=== PATIENT | male | born 1970 | race Caucasian/White ===

== ENCOUNTER 2018-09-22 18:32 | Emergency (ER) | payer MEDICAID ==
[2018-09-22] MEDS ORDERED: Ketorolac 60 MG/2 ML SDV IM ONE (19:25)
--- NOTE | 2018-09-22 19:57 | EDM.PDOC ---
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 It hurt to move his arm, take a breath or rotate his neck. No shortness of breath or fever. No cough. No trauma. Overnight he had difficulty sleeping because it hurt, and today it's very sharp and starting to radiate up the back of his right neck into his ear so he thought he should get it checked out. He took Tylenol, no anti-inflammatories because he reacted to aspirin earlier in his life. He still has no fever or shortness of breath, denies a cough, denies bruising, chest pain or nausea or vomiting. Even sitting up from a lying position looks painful. Onset: Gradual Duration: Day(s): (36 hours) Associated Symptoms: Denies: Chest Pain, Cough, Diaphoresis, Nausea/Vomiting, Shortness of Breath (Patient is not short of breath but has pleuritic pain with breathing), Weakness Right Upper Back Pain Score (Numeric/FACES): 10 - Related Data Allergies Allergy/AdvReac Type Severity Reaction Status Date / Time aspirin Allergy Swollen Verified 09/22/18 18:55 Eyes Penicillins Allergy Rash Verified 09/22/18 18:55 Home Meds: Home Meds NK [No Known Home Meds] 09/22/18 [History] Past Medical History Musculoskeletal History: Reports: Fracture Other Musculoskeletal History: fx knee fx hands collar bones r femur Neurological History: Reports: Concussion - Past Surgical History Musculoskeletal Surgical History: Reports: Other (See Below) Other Musculoskeletal Surgeries/Procedures:: r knee surgery Social & Family History - Tobacco Use Smoking Status *Q: Never Smoker Second Hand Smoke Exposure: No - Caffeine Use Caffeine Use: Reports: Soda - Alcohol Use Days Per Week of Alcohol Use: 0 - Recreational Drug Use Recreational Drug Use: No ED ROS GENERAL - Review of Systems Review Of Systems: See Below Constitutional: Denies: Fever, Chills HEENT: Reports: No Symptoms Respiratory: Reports: Pleuritic Chest Pain. Denies: Shortness of Breath Cardiovascular: Denies: Chest Pain GI/Abdominal: Denies: Abdominal Pain Skin: Reports: No Symptoms. Denies: Rash Neurological: Reports: No Symptoms ED EXAM, GENERAL - Physical Exam Exam: See Below Exam Limited By: No Limitations General Appearance: Alert, No Apparent Distress (Dose uncomfortable but not distressed) Head: Atraumatic Neck: Normal Inspection, Supple, Non-Tender Respiratory/Chest: No Respiratory Distress, Lungs Clear Cardiovascular: Regular Rate, Rhythm Extremities: Other (Patient reproduces fairly intense scapular pain with abduction of the right arm, especially against resistance) Neurological: Alert, Oriented, No Motor/Sensory Deficits Course - Vital Signs Last Recorded V/S: Last Vital Signs Temp 97.9 F 09/22/18 19:01 Pulse 83 09/22/18 19:01 Resp 20 09/22/18 19:01 BP 121/80 09/22/18 19:01 Pulse Ox 96 09/22/18 19:01 - Orders/Labs/Meds Meds: Medications Discontinued Medications Generic Name Dose Route Start Last Admin Trade Name Michelet PRN Reason Stop Dose Admin Ketorolac Tromethamine 60 mg 09/22/18 19:25 09/22/18 19:32 Toradol IM 09/22/18 19:26 60 mg ONETIME ONE Administration - Re-Assessments/Exams Free Text/Narrative Re-Assessment/Exam: 09/22/18 19:57 60 mg of IM Toradol was given, the patient had no reaction to the medication. It did start to improve. A two-view chest x-ray was normal. I suspect this patient has a rhomboid muscle inflammatory process with some inflammation of the brachial plexus involvement. He was given 10 hydrocodone to use for extra pain control while trying to rest., And will start prednisone 60 mg daily tomorrow morning and increase activity as tolerated. He can recheck in 2-3 days if not improving satisfactorily. Departure - Departure Time of Disposition: 20:15 Disposition: Home, Self-Care 01 Clinical Impression: Rhomboid muscle strain Qualifiers: Encounter type: initial encounter Qualified Code(s): S29.012A - Strain of muscle and tendon of back wall of thorax, initial encounter - Discharge Information Instructions: Muscle Strain, [id number] Referrals: PCP,None [Primary Care Provider] - Forms: ED Department Discharge Care Plan Goals: Take 6 pills of prednisone with your first meal daily for at least 2-3 days and up to 5 days. Increase activity as tolerated and use hydrocodone for extra pain control while resting. Consider rechecking in 3 days if not improving.
--- NOTE | 2018-09-22 20:26 | CRLCR ---
INDICATION: dyspnea TECHNIQUE: Chest 2 views. COMPARISON: None. FINDINGS: Cardiovascular and mediastinum: Heart size and vasculature are normal in caliber and appearance. Mediastinum is within normal limits. Lungs and pleural spaces: Lungs are clear. No sign of infiltrate or mass. No sign of pleural effusion. No pneumothorax. Bones and soft tissues: No significant findings. IMPRESSION: Unremarkable chest. Dictated by: Issa Amaya MD @ 09/22/2018 20:23:52 (Electronically Signed)
== END 2018-09-22 20:14 | disposition home or self-care (01) ==
LOC: JP.ED 18:32
DX: S29.012A Strain of muscle and tendon of back wall of thorax, initial encounter (principal); Z88.6 Allergy status to analgesic agent; Z88.0 Allergy status to penicillin; X58.XXXA Exposure to other specified factors, initial encounter
CPT/HCPCS: 71046; 96372; 99284; J1885

== ENCOUNTER 2021-03-19 08:08 | Emergency (ER) | payer MEDICAID ==
--- NOTE | 2021-03-19 08:44 | EDM.PDOC ---
ED HPI GENERAL MEDICAL PROBLEM - General Chief Complaint: Upper Extremity Injury/Pain Stated Complaint: R POINTER FINGER INJURY Time Seen by Provider: 03/19/21 08:35 Source of Information: Reports: Patient History Limitations: Reports: No Limitations - History of Present Illness INITIAL COMMENTS - FREE TEXT/NARRATIVE: 51 yo male got hit by a nail gun yesterday in his R index finger. Is here for an X-ray to make sure it is not broken before he leaves for a vacation in [place], wants a Covid test also. Tetanus is UTD. 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 Finger-Index Pain Score (Numeric/FACES): 8 - Related Data Allergies Allergy/AdvReac Type Severity Reaction Status Date / Time aspirin Allergy Swollen Verified 03/19/21 08:21 Eyes Penicillins Allergy Rash Verified 03/19/21 08:21 Home Meds: Home Meds NK [No Known Home Meds] 09/22/18 [History] Past Medical History Musculoskeletal History: Reports: Fracture Other Musculoskeletal History: fx knee fx hands collar bones r femur Neurological History: Reports: Concussion Psychiatric History: Reports: None - Infectious Disease History Infectious Disease History: Reports: Chicken Pox - Past Surgical History Musculoskeletal Surgical History: Reports: Other (See Below) Other Musculoskeletal Surgeries/Procedures:: r knee surgery Social & Family History - Tobacco Use Tobacco Use Status *Q: Never Tobacco User - Caffeine Use Caffeine Use: Reports: Soda - Recreational Drug Use Recreational Drug Use: No Review of Systems - Review of Systems Review Of Systems: See Below Constitutional: Reports: No Symptoms Skin: Reports: Wound (puncture wound to the R index finger). Denies: Erythema Neurological: Reports: No Symptoms ED EXAM, GENERAL - Physical Exam Exam: See Below Exam Limited By: No Limitations General Appearance: Alert, WD/WN, No Apparent Distress Extremities: Normal Inspection, No Pedal Edema. No: Pedal Edema, Limited Range of Motion, Increased Warmth, Redness Neurological: Alert, Oriented, CN II-XII Intact, Normal Cognition, No Motor/Sensory Deficits Psychiatric: Normal Affect, Normal Mood Skin Exam: Warm, Dry, Normal Color, No Rash, Wound/Incision (puncture wound to proximal R index finger dorsally, not a through and through injury. Was a glancing injury.). No: Intact Course - Vital Signs Last Recorded V/S: Last Vital Signs Temp 36.8 C 03/19/21 08:18 Pulse 88 03/19/21 08:18 Resp 16 03/19/21 08:18 BP 131/84 03/19/21 08:18 Pulse Ox 97 03/19/21 08:18 - Orders/Labs/Meds Orders: Active Orders 24 hr Category Date Time Status Fingers Second Digit Rt F6 [CR] Stat Exams 03/19/21 08:41 Taken Isolation [COMM] Stat Oth 03/19/21 08:41 Ordered Labs: Laboratory Tests 03/19/21 Range/Units 08:59 Influenza Type A RNA Negative (NEGATIVE) RSV RNA (INAAT) Negative (NEGATIVE) Influenza Type B RNA Negative (NEGATIVE) SARS-CoV-2 RNA (DAMIEN) Negative (NEGATIVE) - Radiology Interpretation Free Text/Narrative:: R index finger X-ray-no fx Departure - Departure Time of Disposition: 09:52 Disposition: Home, Self-Care 01 Condition: Good Clinical Impression: Finger wound, simple, open Qualifiers: Encounter type: initial encounter Qualified Code(s): S61.209A - Unspecified open wound of unspecified finger without damage to nail, initial encounter - Discharge Information *PRESCRIPTION DRUG MONITORING PROGRAM REVIEWED*: Not Applicable *COPY OF PRESCRIPTION DRUG MONITORING REPORT IN PATIENT DOREEN: Not Applicable Referrals: PCP,None [Primary Care Provider] - Forms: ED Department Discharge Additional Instructions: Clean finger with soap and water several times per day. Apply antibiotic ointment after cleaning and apply a bandage. Recheck for signs of infection. Sepsis Event Note (ED) - Evaluation Sepsis Screening Result: No Definite Risk - Focused Exam Vital Signs: Vital Signs Temp Pulse Resp BP Pulse Ox 03/19/21 08:18 36.8 C 88 16 131/84 97 - My Orders Last 24 Hours: My Active Orders 03/19/21 08:41 Fingers Second Digit Rt F6 [CR] Stat Isolation [COMM] Stat - Assessment/Plan Last 24 Hours: My Active Orders 03/19/21 08:41 Fingers Second Digit Rt F6 [CR] Stat Isolation [COMM] Stat
[2021-03-19 09:38] LABS: CORONAVIRUS COVID-19 NAA NEGATIVE (NEGATIVE)
--- NOTE | 2021-03-21 09:12 | CR ---
Fingers Second Digit Rt F6 CLINICAL HISTORY: Injury FINDINGS: There is moderate deformity of the distal aspect of the second metacarpal likely related to old injury. No fracture or radiopaque foreign body identified IMPRESSION: Old deformity distal second metacarpal No fracture or foreign body
== END 2021-03-19 10:05 | disposition home or self-care (01) ==
LOC: JP.ED 08:08
DX: S61.230A Puncture wound without foreign body of right index finger without damage to nail, initial encounter (principal); Z88.0 Allergy status to penicillin; Z88.8 Allergy status to other drugs, medicaments and biological substances; Z20.822 Contact with and (suspected) exposure to COVID-19; W22.09XA Striking against other stationary object, initial encounter
CPT/HCPCS: 0241U; 73140; 99283

== ENCOUNTER 2021-08-16 18:20 | Emergency (ER) | payer MEDICAID ==
[2021-08-16] MEDS ORDERED: Ketorolac 30 MG/ML SDV IM ONE (18:54)
[2021-08-16] MEDS ORDERED: Cyclobenzaprine 10 MG Tab PO ONE (18:56)
[2021-08-16] MEDS ORDERED: Acetaminophen 500 MG Tab PO ONE (18:57)
[2021-08-16] MEDS ORDERED: Morphine 10 MG/ML Syringe IM ONE (19:20)
== END 2021-08-16 20:17 | disposition home or self-care (01) ==
LOC: JP.ED 18:20
DX: S39.012A Strain of muscle, fascia and tendon of lower back, initial encounter (principal); M51.16 Intervertebral disc disorders with radiculopathy, lumbar region; Z88.0 Allergy status to penicillin; Z88.8 Allergy status to other drugs, medicaments and biological substances; Z86.16 Personal history of COVID-19; X50.0XXA Overexertion from strenuous movement or load, initial encounter; Y99.0 Civilian activity done for income or pay
CPT/HCPCS: 72100; 96372; 99283; A9270; J1885; J2270

== ENCOUNTER 2023-07-24 17:27 | Emergency (ER) | payer MEDICAID | END 2023-07-24 19:50 | disposition home or self-care (01) | LOC: JP.ED 17:27 | DX: S86.112A Strain of other muscle(s) and tendon(s) of posterior muscle group at lower leg level, left leg, initial encounter (principal); Z88.6 Allergy status to analgesic agent; Z88.0 Allergy status to penicillin; Z86.16 Personal history of COVID-19; X50.0XXA Overexertion from strenuous movement or load, initial encounter; Y93.39 Activity, other involving climbing, rappelling and jumping off | CPT/HCPCS: 99283 ==